=== PATIENT | female | born 1980 | race Asian ===

== ENCOUNTER 2019-05-18 10:16 | Emergency (ER) | payer OTHER ==
[~2019-05-18] VITALS: Ht 154.9 cm; Wt 83.9 kg
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
--- NOTE | 2019-05-18 10:48 | NUR ---
Patient discharged to home in stable condition. Written and verbal after care instructions given. Patient verbalizes understanding of instruction.
[2019-05-18 10:49] VITALS: BP 135/85
== END 2019-05-18 10:49 | disposition home or self-care (01) ==
LOC: ER 10:27
DX: M79.10 Myalgia, unspecified site (principal); V49.49XA Driver injured in collision with other motor vehicles in traffic accident, initial encounter; Y93.89 Activity, other specified; Y92.413 State road as the place of occurrence of the external cause; Y99.8 Other external cause status